=== PATIENT | male | born 1950 | race Caucasian/White ===

== ENCOUNTER 2019-02-09 17:10 | Emergency (ER) | payer OTHER, SELFPAY ==
[2019-02-09 17:10] VITALS: TEMP -17.7; TEMP 0; BMI 27.2
[2019-02-09 17:13] VITALS: BP 113/70; BP 131/86; BP 61/36; BP 94/42; PULSE 108; PULSE 20; PULSE 26; PULSE 33; PULSE 36; PULSE 47; PULSE 56; PULSE 93; RESP 24; O2SAT 35; O2SAT 46; O2SAT 48; O2SAT 51
--- NOTE | 2019-02-09 17:38 | EKG12_ITS ---
Test Reason : CODE BLUE Blood Pressure : / mmHG Vent. Rate : 021 BPM Atrial Rate : 021 BPM P-R Int : 000 ms QRS Dur : 160 ms QT Int : 506 ms P-R-T Axes : 000 108 000 degrees QTc Int : 298 ms Marked Sinus vs. Ectopic Atrial Bradycardia Right bundle branch block Abnormal ECG Confirmed by LORENA WALDRON, JEANNETTE ([id number]), deputy editor in chief JULY VANEGAS ([id number] on 02/14/2019 11:47:59 AM Referred By: [facility] Confirmed By:JEANNETTE CARRILLO MD
--- NOTE | 2019-02-09 17:48 | CPS ---
Addendum entered by Danielle Worrell 02/09/19 17:50: Original Note: Pt arrived via EMS with a 7.[address] at 26cm at the lip. Easy cap displayed appropriate color change and bilateral breath sounds heard.
--- NOTE | 2019-02-09 17:50 | CM.ED ---
SOCIAL WORK THIS WORKER RESPONDED TO CODE BLUE. TIME OF CALLED AT 1740. EMOTIONAL SUPPORT PROVIDED TO FAMILY THROUGHOUT. EDGARDO AMEZQUITA, CAPACITY PLANNING ENGINEER, NUCLEAR LICENSING ENGINEER.
--- NOTE | 2019-02-09 17:51 | ED.VISSUMM ---
- ER Visit Summary Date of Service: 02/09/19 Chief Complaint: Cardiac arrest History of Present Illness: The patient is a 68 M who was found down at home. He was laying face down. Upon EMS arrival he was in ventricular fibrillation. They defibrillated him multiple times. They gave epinephrine, amiodarone as well as atropine and they did receive a pulse. They continued CPR. A pulse in the mid 20s was returned and then they gave the atropine. In route he lost his pulse again. They checked his blood sugar and it was 400. History is limited at this time. Physical Examination: The patient was intubated on scene. His current GCS is 3T. He has no palpable pulses but does have pulses with CPR. His head was normocephalic. His pupils are fixed and dilated. His abdomen is soft and distended. His head appears cyanotic. Test Results: EKG was an idioventricular rhythm in the 20s when he did have a pulse Emergency Department Course and Treatment: Upon arrival CPR was continued. At pulse check he was in ventricular fibrillation so he was defibrillated at 200 J. Epinephrine, lidocaine was given. He then did return a pulse. Levophed was then started. He was also given atropine due to bradycardia. I did a bedside ultrasound and it revealed cardiac activity but it was not strong. He then lost a pulse again and CPR was continued. Epinephrine was then given again. He then went into ventricular fibrillation again and he was defibrillated at 360 J. I then involve the family and the decision making. He returned to pulse after this. However I informed him that he will likely lose the pulse again despite being on the Levophed drip. They requested that we cease all efforts if he did lose a pulse again. The patient then went into PEA. I ultrasounded his heart and he only had agonal activity at that time. We then ceased efforts at 1740 p.m. Treatment Plan: [] Disposition: To the [facility] [place] Impression: Cardiopulmonary arrest This note was generated with [employer] dictation software. It may contain incorrect words, spelling, and punctuation that were not noted in review of the chart prior to signing ED Disposition - Plan for ED Patient: Referrals: Care Physician,No Primary [Primary Care Provider] -
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
--- NOTE | 2019-02-09 19:03 | ED.RN ---
LEVOPHED WAS MIXED IN THE DEPARTMENT, CONCENTRATION WAS 4MG IN 250ML, MEDICATION WAS STARTED AT 1728 AT 20MCG/MIN.
[2019-02-09 19:07] VITALS: TEMP -17.7; TEMP 0
== END 2019-02-09 20:10 ==
PROVIDERS: Emergency Provider Emergency Medicine
DX: I46.9 Cardiac arrest, cause unspecified (principal); I49.01 Ventricular fibrillation
CPT/HCPCS: 92950; 93005; 99281; J7030; J7050; A4216